=== PATIENT | female | born 1985 | race Caucasian/White ===

== ENCOUNTER 2017-12-23 09:51 | Outpatient (CLI) | payer MEDICAID ==
[2017-12-23] MEDS: LACTATED RINGER'S 1,000 ML IV* (11:56)
[2017-12-23] MEDS: BETAMET NA PHOS/AC(6 MG/ML) 5ML INJ IM (11:57)
[2017-12-23] MEDS: TERBUTALINE 1 MG/ML INJ SC (11:57)
[2017-12-23 13:20] LABS: AMPHETAMINE/METHAMPHETAMINE NEGATIVE (NEGATIVE); BARBITURATES NEGATIVE (NEGATIVE); BENZODIAZEPINES NEGATIVE (NEGATIVE); CANNABINOIDS NEGATIVE (NEGATIVE); COCAINE NEGATIVE (NEGATIVE); OPIATES NEGATIVE (NEGATIVE)
[2017-12-23] MEDS: NIFEdipine 10 MG CAP PO (13:24)
== END 2017-12-23 16:00 | disposition home or self-care (01) ==
LOC: OBT 09:51 → L-D 09:51 → OBT 16:00
DX: O60.03 Preterm labor without delivery, third trimester (principal); Z3A.35 35 weeks gestation of pregnancy
CPT/HCPCS: 36415; 76818; 80307; 96360; 96361; 96372

== ENCOUNTER 2017-12-24 11:27 | Outpatient (CLI) | payer MEDICAID ==
[2017-12-24] MEDS: BETAMET NA PHOS/AC(6 MG/ML) 5ML INJ IM (13:12)
== END 2017-12-24 15:00 | disposition home or self-care (01) ==
LOC: OBT 11:27 → L-D 11:27 → OBT 15:00
DX: O36.8930 Maternal care for other specified fetal problems, third trimester, not applicable or unspecified (principal); Z3A.36 36 weeks gestation of pregnancy
CPT/HCPCS: 96372

== ENCOUNTER 2018-01-13 14:28 | Inpatient (IN) | payer MEDICAID ==
[2018-01-13 17:28] LABS: RUPTURE FETAL MEMBRANES NEGATIVE (NEGATIVE)
[2018-01-13] MEDS ORDERED: OXYTOCIN 30 UNITS/LR 500 ML IV (19:00)
[2018-01-13] MEDS ORDERED: CARBOPROST 250 MCG INJ IM (19:00)
[2018-01-13] MEDS ORDERED: METHYLERGONOVINE 0.2 MG INJ IM (19:00)
[2018-01-13] MEDS ORDERED: MISOPROSTOL 200 MCG TAB PR (19:00)
[2018-01-13] MEDS ORDERED: LIDOCAINE 1% (MPF) 30 ML INJ INJ (19:00)
[2018-01-13] MEDS: LACTATED RINGER'S 1,000 ML IV* (19:03)
[2018-01-13 19:09] LABS: ADD MAN DIFF? NO
[2018-01-13 19:11] LABS: BASOPHILS % 0.2 % (0.0-2.0); EOSINOPHILS # 0.1 10^3/ul (0.0-0.5); EOSINOPHILS % 0.7 % (0.0-7.0); HEMATOCRIT 38.2 % (37.0-47.0); HEMOGLOBIN 13.2 g/dl (12.0-16.0); LYMPHOCYTES # 2.3 10^3/ul (0.8-2.9); LYMPHOCYTES % 27.5 % (15.0-51.0); MEAN CORPUSCULAR HEMOGLOBIN 31.1 pg (29.0-33.0); MEAN CORPUSCULAR HGB CONC 34.6 g/dl (32.0-37.0); MEAN CORPUSCULAR VOLUME 89.9 fl (82.0-101.0); MEAN PLATELET VOLUME 12.2 fl (7.4-10.4); MONOCYTE # 0.6 10^3/ul (0.3-0.9); MONOCYTES % 6.8 % (0.0-11.0); NEUTROPHIL # 5.3 10^3/ul (1.6-7.5); NEUTROPHILS % 64.4 % (39.0-77.0); PLATELET COUNT 230 10^3/UL (140-415); RED BLOOD COUNT 4.25 10^6/ul (4.20-5.40); RED CELL DISTRIBUTION WIDTH 13.1 % (11.5-14.5)
[2018-01-13 19:11] LABS: WHITE BLOOD COUNT 8.2 10^3/ul (4.8-10.8)
[2018-01-13 19:31] LABS: INR 0.98; PARTIAL THROMBOPLASTIN TIME 26.1 Sec (25.0-35.0); PROTIME 13.1 Sec (11.9-14.9)
[2018-01-13] MEDS: AMPICILLIN 2 GM/NS (PMX) 100 ML IV (19:35)
[2018-01-13 20:21] LABS: HEPATITIS B SURFACE ANTIGEN NEGATIVE (NEGATIVE)
[2018-01-13 21:37] LABS: RAPID PLASMA REAGIN NONREACTIVE (NR)
[2018-01-13 21:46] LABS: ADD UMIC NO; UR ASCORBIC ACID NEGATIVE (NEGATIVE); UR BILIRUBIN (Dip) NEGATIVE (NEGATIVE); UR BLOOD (Dip) NEGATIVE (NEGATIVE); UR CLARITY CLEAR (CLEAR); UR COLOR YELLOW (YELLOW); UR GLUCOSE (Dip) NEGATIVE (NEGATIVE); UR KETONES (Dip) 1+ mg/dL (NEGATIVE); UR LEUKOCYTE ESTERASE (Dip) NEGATIVE Leu/ul (NEGATIVE); UR NITRITE (Dip) NEGATIVE (NEGATIVE); UR SPECIFIC GRAVITY (Dip) 1.021 (1.003-1.030); UR TOTAL PROTEIN (Dip) NEGATIVE (NEGATIVE); UR UROBILINOGEN (Dip) NEGATIVE (NEGATIVE)
[2018-01-13] MEDS: AMPICILLIN 1 GM/NS (PMX) 50 ML IV (23:25)
[2018-01-14] MEDS ORDERED: LACTATED RINGER'S 1,000 ML IV (00:03)
[2018-01-14] MEDS: LACTATED RINGER'S 1,000 ML IV* ×3 (02:04→21:14)
[2018-01-14] MEDS: AMPICILLIN 1 GM/NS (PMX) 50 ML IV ×3 (03:53→12:04)
[2018-01-14 05:38] LABS: HIV 1&2 ANTIBODY NEGATIVE (NEGATIVE)
[2018-01-14] MEDS: OXYTOCIN 30 UNITS/LR 500 ML IV ×4 (15:39→20:28)
[2018-01-14] MEDS: BUTORPHANOL 2 MG INJ IV (18:13)
[2018-01-14] MEDS: MINERAL OIL LIGHT 10 ML VIAL TOP ×2 (19:13)
[2018-01-14] MEDS: IBUPROFEN 600 MG TAB PO (19:41)
[2018-01-14] MEDS ORDERED: OXYTOCIN 30 UNITS/LR 500 ML IV (21:30)
[2018-01-14] MEDS ORDERED: WITCH HAZEL/GLYCERIN PAD PR (21:30)
[2018-01-14] MEDS ORDERED: DIBUCAINE 1% 30 GM OINT PR (21:30)
[2018-01-14] MEDS ORDERED: LANOLIN 7 GM TUBE TOP (21:30)
[2018-01-14] MEDS ORDERED: MISOPROSTOL 200 MCG TAB PR (21:30)
[2018-01-14] MEDS ORDERED: HYDROCODONE/APAP (5/325) TAB PO (21:30)
[2018-01-14] MEDS ORDERED: CARBOPROST 250 MCG INJ IM (21:30)
[2018-01-14] MEDS ORDERED: ZOLPIDEM 5 MG TAB PO (21:30)
[2018-01-14] MEDS ORDERED: METHYLERGONOVINE 0.2 MG INJ IM (21:30)
[2018-01-14] MEDS: MAGNESIUM HYDROXIDE 30ML CUP PO (23:07)
[2018-01-14] MEDS: SENNA/DOCUSATE NA (8.6MG/50MG) TAB PO (23:08)
[2018-01-14] MEDS: CEPHALEXIN 500 MG CAP PO (23:09)
[2018-01-14] MEDS: BENZOCAINE 20% 56 ML SPRAY TOP (23:09)
[2018-01-14] MEDS: HYDROCODONE/APAP (5/325) TAB PO (23:33)
[2018-01-15] MEDS: LACTATED RINGER'S 1,000 ML IV* (00:18)
[2018-01-15] MEDS: CEPHALEXIN 500 MG CAP PO ×3 (06:34→17:41)
[2018-01-15] MEDS: IBUPROFEN 600 MG TAB PO ×4 (06:34→17:40)
[2018-01-15] MEDS: SENNA/DOCUSATE NA (8.6MG/50MG) TAB PO ×2 (09:06→21:10)
[2018-01-15] MEDS: MAGNESIUM HYDROXIDE 30ML CUP PO ×2 (09:06→21:10)
[2018-01-15 10:27] LABS: ADD MAN DIFF? NO
[2018-01-15 10:36] LABS: BASOPHILS % 0.2 % (0.0-2.0); EOSINOPHILS # 0.1 10^3/ul (0.0-0.5); EOSINOPHILS % 0.6 % (0.0-7.0); HEMATOCRIT 28.6 % (37.0-47.0); HEMOGLOBIN 9.8 g/dl (12.0-16.0); LYMPHOCYTES # 2.4 10^3/ul (0.8-2.9); LYMPHOCYTES % 22.8 % (15.0-51.0); MEAN CORPUSCULAR HEMOGLOBIN 31.3 pg (29.0-33.0); MEAN CORPUSCULAR HGB CONC 34.3 g/dl (32.0-37.0); MEAN CORPUSCULAR VOLUME 91.4 fl (82.0-101.0); MEAN PLATELET VOLUME 12.1 fl (7.4-10.4); MONOCYTE # 0.7 10^3/ul (0.3-0.9); MONOCYTES % 6.6 % (0.0-11.0); NEUTROPHIL # 7.2 10^3/ul (1.6-7.5); NEUTROPHILS % 69.4 % (39.0-77.0); PLATELET COUNT 205 10^3/UL (140-415); RED BLOOD COUNT 3.13 10^6/ul (4.20-5.40); RED CELL DISTRIBUTION WIDTH 12.9 % (11.5-14.5)
[2018-01-15 10:36] LABS: WHITE BLOOD COUNT 10.4 10^3/ul (4.8-10.8)
[2018-01-16] MEDS: IBUPROFEN 600 MG TAB PO ×3 (00:09→12:25)
[2018-01-16] MEDS: CEPHALEXIN 500 MG CAP PO ×3 (00:09→12:25)
[2018-01-16] MEDS: DIPHTH/TET/ACEL PERTUSS (ADULT) 0.5 ML VIAL IM* (09:04)
[2018-01-16] MEDS: MEASLES,MUMPS,RUBELLA VACCINE INJ SC* (09:04)
[2018-01-16] MEDS: MAGNESIUM HYDROXIDE 30ML CUP PO (09:05)
[2018-01-16] MEDS: SENNA/DOCUSATE NA (8.6MG/50MG) TAB PO (09:05)
[2018-01-16] MEDS: VARICELLA VACCINE LIVE/PF 1,350 UNIT/0.5 ML ML SC* (10:41)
== END 2018-01-16 18:41 | disposition home or self-care (01) | DRG 775 ==
LOC: OBT 14:28 → PP1 01-14 21:09 → L-D 14:28 → OBT 17:50 → L-D 17:50
PROVIDERS: Obstetrics & Gynecology
PROC: 10D07Z6 Extraction of Products of Conception, Vacuum, Via Natural or Artificial Opening (ICD-10-PCS; principal; 2018-01-14)
DX: O69.81X0 Labor and delivery complicated by cord around neck, without compression, not applicable or unspecified (principal); O76 Abnormality in fetal heart rate and rhythm complicating labor and delivery; Z3A.39 39 weeks gestation of pregnancy; Z37.0 Single live birth
CPT/HCPCS: 76818; 81003; 84112; 85025; 85610; 85730; 86592; 86703; 86850; 86900; 86901; 87086; 87340; 99464